=== PATIENT | male | born 1970 | race Caucasian/White ===

== ENCOUNTER 2016-12-06 16:11 | Emergency (ER) | payer SELFPAY ==
[~2016-12-06] VITALS: Ht 182.9 cm; Wt 65.0 kg
[~2016-12-06 16:11] MED LIST: BACT800T5 PO; DAPT500P IVPB; HYDR-3533 PO; HYDR-3580 PO; IBUP800T23 PO; LEVA750T PO; MUPI2%T TOPICAL
[2016-12-06 16:13] VITALS: BP 131/76; PULSE 112; RESP 20; TEMP 98.5; O2SAT 94
[2016-12-06 16:25] VITALS: BP 120/65; PULSE 98; RESP 18; TEMP 98.2; O2SAT 95
[2016-12-06] MEDS ORDERED: KETOROLAC TROMETHAMINE 60 MG/2 ML (IM) VIAL IM ONE (16:30)
--- NOTE | 2016-12-06 16:40 | PD ---
HPI Chief Complaint: Lump, Cyst, Hernia Time Seen by Provider: 16:35 Travel History International Travel<30 days: No Contact w/Intl Traveler<30days: No Traveled to known affect area: No History of Present Illness HPI 46-year-old male that presents to the ED for evaluation of medical clearance. Patient apparently was arrested by police for unknown charges. Patient apparently complained to the police detention attendant as well as to the ED back that he was having some hernia pain on his left lower quadrant. Patient reports that he has a history of hernias and had surgery on his right side. Per patient the pain has been ongoing for the past 4 days but he is able to reduce the hernia. I was also told by ambulance the patient did made multiple comments that he basically wanted to "waste the emr analyst time ". On my evaluation he denies any other complaint. No diarrhea. No bowel movement issues. He states that the pain is 4 out of 10 but comes and goes. He does not have any obvious deformity noted. At this time his pain is 2 out of 10. He denies any chest pain. No shortness of breath. No recent surgeries. No allergies to medication. Per patient he symptoms started 4 days ago after he had a cough episode and the hernia came out. PFSH Past Medical History Hx Anticoagulant Therapy: No Arthritis: No Cancer: No Cardiovascular Problems: No Chemotherapy: No COPD: Yes Cerebrovascular Accident: No Diabetes: No Diminished Hearing: No Endocrine: No Gastrointestinal Disorders: No Genitourinary: No Immune Disorder: No Implanted Vascular Access Dvce: No Musculoskeletal: Yes (fx collar bone) Neurologic: No Psychiatric: No Reproductive: No Respiratory: Yes Tetanus Vaccination: < 5 Years Influenza Vaccination: No Past Surgical History Abdominal Surgery: Yes (hernia repair 1990) Cardiac Surgery: No Ear Surgery: No Endocrine Surgery: No Eye Surgery: No Genitourinary Surgery: No Gynecologic Surgery: No Neurologic Surgery: No Oral Surgery: No Thoracic Surgery: No Other Surgery: Yes Social History Alcohol Use: Yes Tobacco Use: No Substance Use: No Allergies-Medications (Allergen,Severity, Reaction): Coded Allergies: *MDRO Multi-Drug Resistant Organism (Unverified Adverse Reaction, Unknown , 12/06/16) 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 Reported Meds & Prescriptions Reported Meds & Active Scripts Active No Active Prescriptions or Reported Medications Review of Systems General / Constitutional: No: Fever, Chills, Weight Gain, Weight Loss, Other Eyes: No: Diploplia, Blurred Vision, Photophobia, Drainage, Redness, Foreign Body Sensation, Pain, Tearing, Blind Spots, Visual changes, Blindness, Other HENT: No: Headaches, Vertigo, Lightheadedness, Sore Throat, Rhinitis, Rhinorrhea, Congestion, Nosebleed, Neck Stiffness, Neck Pain, Masses, Gingival Bleeding, Dental Difficulties, Ear Discharge, Earache, Other Cardiovascular: No: Chest Pain or Discomfort, Palpitations, Irregular Rhythm, Tachycardia, Diaphoresis, Syncope, Dyspnea on exertion, Varicosities, Edema, Cyanosis, Varicosities, Phlebitis, Claudication, Other Respiratory: No: Cough, Shortness of Breath, Wheezing, Sneezing, Orthopnea, Hemoptysis, Stridor, Night Sweats, Pleuritic Pain, Other Gastrointestinal: Positive: Abdominal Pain, No: Nausea, Vomiting, Diarrhea, Hematemesis, Hematochezia, Constipation, Changes in Bowel Habits, Indigestion, Dysphagia, Loss of Appetite, Other Genitourinary: No: Urgency, Frequency, Dysuria, Nocturia, Hematuria, Decreased Urinary Output, Oliguria, Hesitancy, Dribbling, Incontinence, Pelvic Pain, Flank Pain, Dyspareunia, Discharge, Dysmenorrhea, Menorrhagia, Metorrhagia, Vaginal Bleeding, Other Musculoskeletal: No: Myalgias, Arthralgias, Limited ROM, Weakness, Cramping, Edema, Pain, Atrophy, Other Skin: No Rash, No Itching, No Dryness, No Lumps, No Hives, No Change in Pigmentation, No Change in nails, No Alopecia, No Lesions, No Breast Lumps, No Breast Tenderness, No Breast Swelling, No Other Neurologic: No: Weakness, Dizziness, Syncope, Focal Abnormalities, Coordination Problem, Tremor, Ataxia, Headache, Change in Mentation, Slurred Speech, Paresthesia, Incontinence, Seizures, Sensory Disturbance, Other Psychiatric: No: Anxiety, Depression, Suicidal Ideations, Disorder of Thought, Mood Disorder, Substance Abuse, Homicidal Ideation, Other Endocrine: No: Heat Intolerance, Cold Intolerance, Polyuria, Polydipsia, Other Hematologic/Lymphatic: No: Easy Bruising, Lymph Node Enlargement, Other Physical Exam Narrative GENERAL: SKIN: Warm and dry. HEAD: Atraumatic. Normocephalic. EYES: Pupils equal and round. No scleral icterus. No injection or drainage. ENT: No nasal bleeding or discharge. Mucous membranes pink and moist. Tongue is midline. No uvula deviation. NECK: Trachea midline. No JVD. CARDIOVASCULAR: Regular rate and rhythm. No murmurs, S3, S4. RESPIRATORY: No accessory muscle use. Clear to auscultation. Breath sounds equal bilaterally. GASTROINTESTINAL: Abdomen soft, non-tender, nondistended. Hepatic and splenic margins not palpable. MUSCULOSKELETAL: Extremities without clubbing, cyanosis, or edema. No obvious deformities. Full range of motion of the upper and lower extremities bilaterally. 2+ pulses bilaterally. NEUROLOGICAL: Awake and alert. No obvious cranial nerve deficits. Motor grossly within normal limits. Five out of 5 muscle strength in the arms and legs. Normal speech. PSYCHIATRIC: Appropriate mood and affect; insight and judgment normal. Data Data Last Documented VS Vital Signs Date Time Temp Pulse Resp B/P Pulse Ox O2 Delivery O2 Flow Rate FiO2 12/06/16 17:17 90 18 110/69 94 Room Air 12/06/16 16:25 98.2 Orders Abdomen, Flat & Upright (12/06/16 ) Ketorolac Inj (Toradol Inj) (12/06/16 16:30) MDM Medical Decision Making Medical Screen Exam Complete: Yes Emergency Medical Condition: Yes Medical Record Reviewed: Yes Interpretation(s) X-ray of the abdomen was negative for acute disease. Differential Diagnosis Medical clearance versus normal exam versus hernia versus reducible hernia Narrative Course 38-year-old male that presents to the ED for evaluation of possible hernia. Patient was properly examined and was found to have no signs of acute medical distress. From history and physical this appears to be a reducible hernia although I do not see any at this time. No sign of strangulation. Exam is very benign and again I cannot palpate the hernia at this time. From ambulance report patient apparently is also here for medical clearance to go to alf. I do suspect some malingering. At this time I recommend doing a x-ray to rule out any sign of acute disease. If this is fine patient can be discharged back to alf. Patient was given Toradol shot for pain. X-ray was negative for acute disease. Patient was reassured. At this time I recommend follow-up outpatient with general surgery and this continues to be an issue. See ED for worsening symptoms. Follow with PCP. Diagnosis Primary Impression: Hernia Additional Impression: Medical clearance for incarceration Referrals: Quinton Turner MD Patient Instructions: General Instructions Additional Instructions: Motrin or Tylenol for pain. Follow with general surgeon. See ED for worsening symptoms. Med/Other Pt SpecificInfo: No Change to Meds Scripts No Active Prescriptions or Reported Meds Disposition: [address] LAW ENFORCEMNT Condition: Stable Alberto Buckley Dec 06, 2016 16:40
[2016-12-06 17:17] VITALS: BP 110/69; PULSE 90; RESP 18; O2SAT 94
--- NOTE | 2016-12-06 17:17 | RADRPT ---
EXAM DATE/TIME: 12/06/2016 16:34 [facility] COMPARISON: No previous studies available for comparison. INDICATIONS : Left lower quadrant pain. MEDICAL HISTORY : None. SURGICAL HISTORY : Hernia repair. ENCOUNTER: Initial ACUITY: 3 days PAIN SCORE: 8/10 LOCATION: Left lower quadrant. FINDINGS: Supine and upright views of the abdomen were performed. The abdominal bowel gas pattern is normal. No air fluid levels are seen. No abnormal masses, calcifications, or organomegaly is seen. The visu alized lower lungs are clear. No evidence of free intraperitoneal gas. The osseous structures are u nremarkable. CONCLUSION: 1. Mild constipation. No acute findings. Mesfin Ocampo MD on December 06, 2016 at 17:13 Board Certified Radiologist. This report was verified electronically.
[2016-12-06 18:02] VITALS: RESP 18
== END 2016-12-06 18:02 ==
LOC: NEPE 16:11
DX: Z02.89 Encounter for other administrative examinations (principal); K40.91 Unilateral inguinal hernia, without obstruction or gangrene, recurrent; J44.9 Chronic obstructive pulmonary disease, unspecified
CPT/HCPCS: 74020; 96372; 99283; J1885